=== PATIENT | female | born 1975 | race Caucasian/White ===

== ENCOUNTER → 2020-09-04 | Outpatient (CLI) | payer SELFPAY ==
[2020-09-04 09:14] LABS: BASOPHIL # 0.1 10^3/uL (0.0-0.1); BASOPHIL % 0.7 % (0.0-0.2); EOSINOPHIL # 0.2 10^3/uL (0.0-0.2); EOSINOPHIL % 2.1 % (0.0-5.0); LYMPHOCYTES # 3.48 10^3/uL1 (1.0-4.8); LYMPHOCYTES % 34.8 % (24.0-44.0); MEAN CORP HGB 21.7 pg (26-34); MONOCYTES # 0.7 10^3/uL (0.3-0.8); MONOCYTES % 7.1 % (5.0-12.0); NEUTROPHIL # 5.5 10^3/uL (1.8-7.7); NEUTROPHILS % 55.1 % (41.0-85.0); PLATELET COUNT 350 10^3/uL (150-400); RED CELL DISTRIBUTION WIDTH 17.1 % (11.5-14.5)
[2020-09-04 09:38] LABS: CALCIUM 8.5 mg/dL (8.4-10.5); CARBON DIOXIDE 23.5 mmol/L (20.0-32)
== END | disposition home or self-care (01) ==
LOC: LAB 09:03
PROVIDERS: ATTEND Pediatrics
DX: R53.83 Other fatigue (principal); R53.81 Other malaise; E03.9 Hypothyroidism, unspecified; E78.5 Hyperlipidemia, unspecified
CPT/HCPCS: 36415; 80053; 80061; 84439; 84443; 85025